=== PATIENT | male | born 1965 | race African-American/Black ===

== ENCOUNTER 2017-03-28 16:45 | Inpatient (IN) | payer SELFPAY ==
[2017-03-28] MEDS ORDERED: NACL 0.9% 1000 ML 1,000 ML IV ONE (16:54)
[2017-03-28] MEDS ORDERED: HEPARIN IV ONE (16:54)
[2017-03-28] MEDS ORDERED: ZOFRAN IV ONE (16:56)
[2017-03-28] MEDS ORDERED: MORPHINE IV ONE (16:56)
[2017-03-28] MEDS ORDERED: TRIDIL DRIP 50MG/250ML 50 MG/250 ML BOTTLE IV SCH (17:00)
[2017-03-28 17:01] LABS: Hematocrit 44.6 % (35.5-45.6); Hemoglobin 15.3 gm/dl (11.8-15.2); Mean Corpuscular HGB Conc 34 % (32-34); Mean Corpuscular Hemoglobin 29 pg (28-32); Mean Corpuscular Volume 84 fl (84-94); Platelet Count 273 K/mm3 (140-440); Red Blood Count 5.28 M/mm3 (3.65-5.03); Red Cell Distribution Width 13.6 % (13.2-15.2)
--- NOTE | 2017-03-28 17:01 | Emergency Department Report ---
ED Chest Pain HPI - General Chief Complaint: Chest Pain Stated Complaint: STEMI Time Seen by Provider: 03/28/17 16:52 Source: EMS Mode of arrival: Stretcher Limitations: Language Barrier - History of Present Illness Initial Comments: 51-year-old male with a past medical history hypertension and hyperlipidemia presents to the hospital complaints of chest pain. Patient unable to characterize pain patient with mod-severe and constant. Patient received aspirin and nitroglycerin 1 prior to her abdomen continues to have pain. Initial EKG shows anteroseptal ST elevation CT with reciprocal changes. microbiology laboratory manager activated prior to patient arrival and fire fighter informs and around to the hospital. Patient denies smoking history or previous CT. - Related Data Previous Rx's Medication Instructions Recorded Last Taken Type Aspirin EC [Aspirin Enteric Coated 81 mg PO QDAY #30 tablet 03/30/17 Unknown Rx TAB] AtorvaSTATin [Lipitor] 40 mg PO QHS #30 tablet 03/30/17 Unknown Rx Clopidogrel [Plavix] 75 mg PO QDAY #30 tablet 03/30/17 Unknown Rx ISOSORBIDE MONOnitrate [Imdur ER] 30 mg PO QDAY #30 tablet 03/30/17 Unknown Rx Lisinopril [Zestril TAB] 40 mg PO QDAY #30 tablet 03/30/17 Unknown Rx Metoprolol [Lopressor TAB] 50 mg PO BID #60 tablet 03/30/17 Unknown Rx Allergies Allergy/AdvReac Type Severity Reaction Status Date / Time No Known Allergies Allergy Verified 03/28/17 16:47 Heart Score - HEART Score History: Highly suspicious EKG: Significant ST-depression Age: 45-65 Risk factors: > 3 risk factors or hx of atherosclerotic disease Troponin: < normal limit HEART Score: 7 ED Review of Systems ROS: Stated complaint: STEMI Other details as noted in HPI Comment: All other systems reviewed and negative Other: Constitutional: No fevers chills Eyes: No eye pain visual changes ENT: No ear pain or throat pain Neck: Denies pain Respiratory: shortness of breath Cardiovascular: Denies palpitations, syncope GI: Denies abdominal pain, nausea, vomiting : Denies dysuria Musculoskeletal: Denies back pain Skin: Denies rash Neurologic: Denies headache ED Past Medical Hx - Past Medical History Previous Medical History?: Yes Hx Hypertension: Yes Additional medical history: high cholesterol - Social History Smoking Status: Never Smoker Substance Use Type: None - Medications Home Medications: Home Medications Medication Instructions Recorded Confirmed Last Taken Type Aspirin EC [Aspirin Enteric Coated 81 mg PO QDAY #30 tablet 03/30/17 Unknown Rx TAB] AtorvaSTATin [Lipitor] 40 mg PO QHS #30 tablet 03/30/17 Unknown Rx Clopidogrel [Plavix] 75 mg PO QDAY #30 tablet 03/30/17 Unknown Rx ISOSORBIDE MONOnitrate [Imdur ER] 30 mg PO QDAY #30 tablet 03/30/17 Unknown Rx Lisinopril [Zestril TAB] 40 mg PO QDAY #30 tablet 03/30/17 Unknown Rx Metoprolol [Lopressor TAB] 50 mg PO BID #60 tablet 03/30/17 Unknown Rx ED Physical Exam - General Limitations: Language Barrier ED Course Vital Signs 03/28/17 03/28/17 03/28/17 16:47 17:00 17:05 Temperature 96.9 F L Pulse Rate 86 86 82 Respiratory 24 24 23 Rate Blood Pressure 208/148 144/105 O2 Sat by Pulse 98 100 Oximetry 03/28/17 17:10 Temperature Pulse Rate Respiratory 23 Rate Blood Pressure O2 Sat by Pulse 99 Oximetry - Reevaluation(s) Reevaluation #1: 03/28/17 17:01 2 large-bore IV access sites obtained. Nitroglycerin drip initiated at the significantly elevated blood pressure with go systolic blood pressure 150s. Heparin bolus and drip initiated. Morphine/Zofran ordered for pain/nausea Patient received aspirin prior to arrival Radiology and Lab personnel and brought to the hospital - Consultations Consultation #1: 03/28/17 16:35 grass farm laborer activated and EKG sent and Reviewed by Dr Wood prior to pt arrival to the ED. + anteroseptal STEMI MIKEL score - Mikel Score Age > 65: (0) No Aspirin use within the Past 7 Days: (0) No 3 or more CAD Risk Factors: (1) Yes 2 or more Angina events in past 24 hrs: (0) No Known CAD with more than 50% Stenosis: (0) No Elevated Cardiac Markers: (0) No ST Deviation Greater than 0.5mm: (1) Yes MIKEL Score: 2 ED Medical Decision Making - Lab Data Result diagrams: 03/29/17 03:36 03/29/17 03:36 Lab Results 03/28/17 03/28/17 03/28/17 Range/Units 16:47 16:47 16:47 WBC 12.0 H (4.5-11.0) K/mm3 RBC 5.28 H (3.65-5.03) M/mm3 Hgb 15.3 H (11.8-15.2) gm/dl Hct 44.6 (35.5-45.6) % MCV 84 (84-94) fl MCH 29 (28-32) pg MCHC 34 (32-34) % RDW 13.6 (13.2-15.2) % Plt Count 273 (140-440) K/mm3 Lymph % (Auto) (13.4-35.0) % Iron % (Auto) (0.0-7.3) % Eos % (Auto) (0.0-4.3) % Baso % (Auto) (0.0-1.8) % Lymph # Paradichlorobenzene Machine Operator Iron # (0.0-0.8) K/mm3 Eos # (0.0-0.4) K/mm3 Baso # (0.0-0.1) K/mm3 Add Manual Diff Complete Total Counted 100 Seg Neutrophils % (40.0-70.0) % Seg Neuts % (Manual) 64.0 (40.0-70.0) % Band Neutrophils % 2.0 % Lymphocytes % (Manual) 25.0 (13.4-35.0) % Reactive Lymphs % (Man) 0 % Monocytes % (Manual) 7.0 (0.0-7.3) % Eosinophils % (Manual) 2.0 (0.0-4.3) % Basophils % (Manual) 0 (0.0-1.8) % Metamyelocytes % 0 % Myelocytes % 0 % Promyelocytes % 0 % Blast Cells % 0 % Nucleated RBC % Not Reportable Seg Neutrophils # (1.8-7.7) K/mm3 Seg Neutrophils # Man 7.7 (1.8-7.7) K/mm3 Band Neutrophils # 0.2 K/mm3 Lymphocytes # (Manual) 3.0 (1.2-5.4) K/mm3 Abs React Lymphs (Man) 0.0 K/mm3 Monocytes # (Manual) 0.8 (0.0-0.8) K/mm3 Eosinophils # (Manual) 0.2 (0.0-0.4) K/mm3 Basophils # (Manual) 0.0 (0.0-0.1) K/mm3 Metamyelocytes # 0.0 K/mm3 Myelocytes # 0.0 K/mm3 Promyelocytes # 0.0 K/mm3 Blast Cells # 0.0 K/mm3 WBC Morphology Not Reportable Hypersegmented Neuts Not Reportable Hyposegmented Neuts Not Reportable Hypogranular Neuts Not Reportable Smudge Cells Not Reportable Toxic Granulation Not Reportable Toxic Vacuolation Not Reportable Dohle Bodies Not Reportable Pelger-Huet Anomaly Not Reportable Mesha Rods Not Reportable Platelet Estimate Appears normal Clumped Platelets Not Reportable Plt Clumps, EDTA Not Reportable Large Platelets Not Reportable Giant Platelets Not Reportable Platelet Satelliting Not Reportable Plt Morphology Comment Not Reportable RBC Morphology Not Reportable Dimorphic RBCs Not Reportable Polychromasia Not Reportable Hypochromasia Not Reportable Poikilocytosis Not Reportable Anisocytosis Not Reportable Microcytosis Not Reportable Macrocytosis Not Reportable Spherocytes Not Reportable Pappenheimer Bodies Not Reportable Sickle Cells Not Reportable Target Cells Not Reportable Tear Drop Cells Not Reportable Ovalocytes Few Helmet Cells Not Reportable [place] Bodies Not Reportable Jenison Rings Not Reportable Leilani Cells Not Reportable Bite Cells Not Reportable Crenated Cell Not Reportable Elliptocytes Not Reportable Acanthocytes (Spur) Not Reportable Rouleaux Not Reportable Hemoglobin C Crystals Not Reportable Schistocytes Not Reportable Malaria parasites Not Reportable Carlos Bodies Not Reportable Hem Pathologist Commnt No PT 11.8 L (12.2-14.9) Sec. INR 0.83 L (0.87-1.13) APTT 25.6 (24.2-36.6) Sec. Activated Clotting Time (74-137) Sodium 140 (137-145) mmol/L Potassium 3.4 L (3.6-5.0) mmol/L Chloride 98.3 (98-107) mmol/L Carbon Dioxide 24 (22-30) mmol/L Anion Gap 21 mmol/L BUN 17 (9-20) mg/dL Creatinine 1.1 (0.8-1.5) mg/dL Estimated GFR > 60 ml/min BUN/Creatinine Ratio 15 % Glucose 119 H (75-100) mg/dL Calcium 9.5 (8.4-10.2) mg/dL Total Creatine Kinase 418 H (55-170) units/L CK-MB (CK-2) 6.3 H (0.0-4.0) ng/mL CK-MB (CK-2) Rel Index 1.5 (0-4) Troponin T < 0.010 (0.00-0.029) ng/mL Triglycerides (2-149) mg/dL Cholesterol (50-199) mg/dL LDL Cholesterol Direct (50-130) mg/dL HDL Cholesterol (40-59) mg/dL Cholesterol/HDL Ratio % Blood Type Antibody Screen 03/28/17 03/28/17 03/28/17 Range/Units 16:47 16:47 20:23 WBC (4.5-11.0) K/mm3 RBC (3.65-5.03) M/mm3 Hgb (11.8-15.2) gm/dl Hct (35.5-45.6) % MCV (84-94) fl MCH (28-32) pg MCHC (32-34) % RDW (13.2-15.2) % Plt Count (140-440) K/mm3 Lymph % (Auto) (13.4-35.0) % Iron % (Auto) (0.0-7.3) % Eos % (Auto) (0.0-4.3) % Baso % (Auto) (0.0-1.8) % Lymph # Iron # (0.0-0.8) K/mm3 Eos # (0.0-0.4) K/mm3 Baso # (0.0-0.1) K/mm3 Add Manual Diff Total Counted Seg Neutrophils % (40.0-70.0) % Seg Neuts % (Manual) (40.0-70.0) % Band Neutrophils % % Lymphocytes % (Manual) (13.4-35.0) % Reactive Lymphs % (Man) % Monocytes % (Manual) (0.0-7.3) % Eosinophils % (Manual) (0.0-4.3) % Basophils % (Manual) (0.0-1.8) % Metamyelocytes % % Myelocytes % % Promyelocytes % % Blast Cells % % Nucleated RBC % Seg Neutrophils # (1.8-7.7) K/mm3 Seg Neutrophils # Man (1.8-7.7) K/mm3 Band Neutrophils # K/mm3 Lymphocytes # (Manual) (1.2-5.4) K/mm3 Abs React Lymphs (Man) K/mm3 Monocytes # (Manual) (0.0-0.8) K/mm3 Eosinophils # (Manual) (0.0-0.4) K/mm3 Basophils # (Manual) (0.0-0.1) K/mm3 Metamyelocytes # K/mm3 Myelocytes # K/mm3 Promyelocytes # K/mm3 Blast Cells # K/mm3 WBC Morphology Hypersegmented Neuts Hyposegmented Neuts Hypogranular Neuts Smudge Cells Toxic Granulation Toxic Vacuolation Dohle Bodies Pelger-Huet Anomaly Mesha Rods Platelet Estimate Clumped Platelets Plt Clumps, EDTA Large Platelets Giant Platelets Platelet Satelliting Plt Morphology Comment RBC Morphology Dimorphic RBCs Polychromasia Hypochromasia Poikilocytosis Anisocytosis Microcytosis Macrocytosis Spherocytes Pappenheimer Bodies Sickle Cells Target Cells Tear Drop Cells Ovalocytes Helmet Cells [place] Bodies Jen[place] Rings Leilani Cells Bite Cells Crenated Cell Elliptocytes Acanthocytes (Spur) Rouleaux Hemoglobin C Crystals Schistocytes Malaria parasites Carlos Bodies Hem Pathologist Commnt PT (12.2-14.9) Sec. INR (0.87-1.13) APTT (24.2-36.6) Sec. Activated Clotting Time (74-137) Sodium (137-145) mmol/L Potassium (3.6-5.0) mmol/L Chloride (98-107) mmol/L Carbon Dioxide (22-30) mmol/L Anion Gap mmol/L BUN (9-20) mg/dL Creatinine (0.8-1.5) mg/dL Estimated GFR ml/min BUN/Creatinine Ratio % Glucose (75-100) mg/dL Calcium (8.4-10.2) mg/dL Total Creatine Kinase 1958 H (55-170) units/L CK-MB (CK-2) 209.6 H (0.0-4.0) ng/mL CK-MB (CK-2) Rel Index 10.7 H (0-4) Troponin T 6.360 H* D (0.00-0.029) ng/mL Triglycerides 1193 H (2-149) mg/dL Cholesterol 354 H (50-199) mg/dL LDL Cholesterol Direct 120 (50-130) mg/dL HDL Cholesterol 50 (40-59) mg/dL Cholesterol/HDL Ratio 7.08 % Blood Type B POSITIVE Antibody Screen Negative 03/28/17 03/28/17 03/28/17 Range/Units 21:14 22:25 22:39 WBC (4.5-11.0) K/mm3 RBC (3.65-5.03) M/mm3 Hgb (11.8-15.2) gm/dl Hct (35.5-45.6) % MCV (84-94) fl MCH (28-32) pg MCHC (32-34) % RDW (13.2-15.2) % Plt Count (140-440) K/mm3 Lymph % (Auto) (13.4-35.0) % Iron % (Auto) (0.0-7.3) % Eos % (Auto) (0.0-4.3) % Baso % (Auto) (0.0-1.8) % Lymph # Iron # (0.0-0.8) K/mm3 Eos # (0.0-0.4) K/mm3 Baso # (0.0-0.1) K/mm3 Add Manual Diff Total Counted Seg Neutrophils % (40.0-70.0) % Seg Neuts % (Manual) (40.0-70.0) % Band Neutrophils % % Lymphocytes % (Manual) (13.4-35.0) % Reactive Lymphs % (Man) % Monocytes % (Manual) (0.0-7.3) % Eosinophils % (Manual) (0.0-4.3) % Basophils % (Manual) (0.0-1.8) % Metamyelocytes % % Myelocytes % % Promyelocytes % % Blast Cells % % Nucleated RBC % Seg Neutrophils # (1.8-7.7) K/mm3 Seg Neutrophils # Man (1.8-7.7) K/mm3 Band Neutrophils # K/mm3 Lymphocytes # (Manual) (1.2-5.4) K/mm3 Abs React Lymphs (Man) K/mm3 Monocytes # (Manual) (0.0-0.8) K/mm3 Eosinophils # (Manual) (0.0-0.4) K/mm3 Basophils # (Manual) (0.0-0.1) K/mm3 Metamyelocytes # K/mm3 Myelocytes # K/mm3 Promyelocytes # K/mm3 Blast Cells # K/mm3 WBC Morphology Hypersegmented Neuts Hyposegmented Neuts Hypogranular Neuts Smudge Cells Toxic Granulation Toxic Vacuolation Dohle Bodies Pelger-Huet Anomaly Mesha Rods Platelet Estimate Clumped Platelets Plt Clumps, EDTA Large Platelets Giant Platelets Platelet Satelliting Plt Morphology Comment RBC Morphology Dimorphic RBCs Polychromasia Hypochromasia Poikilocytosis Anisocytosis Microcytosis Macrocytosis Spherocytes Pappenheimer Bodies Sickle Cells Target Cells Tear Drop Cells Ovalocytes Helmet Cells [place] Bodies Jen[place] Rings Leilani Cells Bite Cells Crenated Cell Elliptocytes Acanthocytes (Spur) Rouleaux Hemoglobin C Crystals Schistocytes Malaria parasites Carlos Bodies Hem Pathologist Commnt PT (12.2-14.9) Sec. INR (0.87-1.13) APTT (24.2-36.6) Sec. Activated Clotting Time 175 H 142 H (74-137) Sodium (137-145) mmol/L Potassium (3.6-5.0) mmol/L Chloride (98-107) mmol/L Carbon Dioxide (22-30) mmol/L Anion Gap mmol/L BUN (9-20) mg/dL Creatinine (0.8-1.5) mg/dL Estimated GFR ml/min BUN/Creatinine Ratio % Glucose (75-100) mg/dL Calcium (8.4-10.2) mg/dL Total Creatine Kinase 2469 H (55-170) units/L CK-MB (CK-2) 264.1 H (0.0-4.0) ng/mL CK-MB (CK-2) Rel Index 10.6 H (0-4) Troponin T 6.970 H* (0.00-0.029) ng/mL Triglycerides (2-149) mg/dL Cholesterol (50-199) mg/dL LDL Cholesterol Direct (50-130) mg/dL HDL Cholesterol (40-59) mg/dL Cholesterol/HDL Ratio % Blood Type Antibody Screen 12/11/17 12/11/17 Range/Units 03:36 03:36 WBC 13.6 H (4.5-11.0) K/mm3 RBC 4.55 (3.65-5.03) M/mm3 Hgb 12.9 (11.8-15.2) gm/dl Hct 38.8 (35.5-45.6) % MCV 85 (84-94) fl MCH 29 (28-32) pg MCHC 33 (32-34) % RDW 13.5 (13.2-15.2) % Plt Count 234 (140-440) K/mm3 Lymph % (Auto) 14.0 (13.4-35.0) % Iron % (Auto) 5.8 (0.0-7.3) % Eos % (Auto) 0.1 (0.0-4.3) % Baso % (Auto) 0.5 (0.0-1.8) % Lymph # 1.9 Iron # 0.8 (0.0-0.8) K/mm3 Eos # 0.0 (0.0-0.4) K/mm3 Baso # 0.1 (0.0-0.1) K/mm3 Add Manual Diff Total Counted Seg Neutrophils % 79.6 H (40.0-70.0) % Seg Neuts % (Manual) (40.0-70.0) % Band Neutrophils % % Lymphocytes % (Manual) (13.4-35.0) % Reactive Lymphs % (Man) % Monocytes % (Manual) (0.0-7.3) % Eosinophils % (Manual) (0.0-4.3) % Basophils % (Manual) (0.0-1.8) % Metamyelocytes % % Myelocytes % % Promyelocytes % % Blast Cells % % Nucleated RBC % Seg Neutrophils # 10.8 H (1.8-7.7) K/mm3 Seg Neutrophils # Man (1.8-7.7) K/mm3 Band Neutrophils # K/mm3 Lymphocytes # (Manual) (1.2-5.4) K/mm3 Abs React Lymphs (Man) K/mm3 Monocytes # (Manual) (0.0-0.8) K/mm3 Eosinophils # (Manual) (0.0-0.4) K/mm3 Basophils # (Manual) (0.0-0.1) K/mm3 Metamyelocytes # K/mm3 Myelocytes # K/mm3 Promyelocytes # K/mm3 Blast Cells # K/mm3 WBC Morphology Hypersegmented Neuts Hyposegmented Neuts Hypogranular Neuts Smudge Cells Toxic Granulation Toxic Vacuolation Dohle Bodies Pelger-Huet Anomaly Mesha Rods Platelet Estimate Clumped Platelets Plt Clumps, EDTA Large Platelets Giant Platelets Platelet Satelliting Plt Morphology Comment RBC Morphology Dimorphic RBCs Polychromasia Hypochromasia Poikilocytosis Anisocytosis Microcytosis Macrocytosis Spherocytes Pappenheimer Bodies Sickle Cells Target Cells Tear Drop Cells Ovalocytes Helmet Cells [place] Bodies Jenison Rings [place] Cells Bite Cells Crenated Cell Elliptocytes Acanthocytes (Spur) Rouleaux Hemoglobin C Crystals Schistocytes Malaria parasites Carlos Bodies Hem Pathologist Commnt PT (12.2-14.9) Sec. INR (0.87-1.13) APTT (24.2-36.6) Sec. Activated Clotting Time (74-137) Sodium 137 (137-145) mmol/L Potassium 3.7 (3.6-5.0) mmol/L Chloride 99.5 (98-107) mmol/L Carbon Dioxide 20 L (22-30) mmol/L Anion Gap 21 mmol/L BUN 14 (9-20) mg/dL Creatinine 0.8 (0.8-1.5) mg/dL Estimated GFR > 60 ml/min BUN/Creatinine Ratio 18 % Glucose 111 H (75-100) mg/dL Calcium 8.3 L (8.4-10.2) mg/dL Total Creatine Kinase 2468 H (55-170) units/L CK-MB (CK-2) 262.6 H (0.0-4.0) ng/mL CK-MB (CK-2) Rel Index 10.6 H (0-4) Troponin T 6.840 H* (0.00-0.029) ng/mL Triglycerides (2-149) mg/dL Cholesterol (50-199) mg/dL LDL Cholesterol Direct (50-130) mg/dL HDL Cholesterol (40-59) mg/dL Cholesterol/HDL Ratio % Blood Type Antibody Screen - EKG Data -: EKG Interpreted by Mn EKG shows normal: sinus rhythm, axis (qrs 1), QRS complexes (90), ST-T waves ( anteriorseptal STMI, with inv recipical changes.) Rate: normal - Radiology Data Radiology results: image reviewed Chest x-ray read by me: No acute finding - Medical Decision Making pt admitted and emergently transferred to grass farm laborer for ST elevation CT. Hospitalist informed - Differential Diagnosis dissection, CT, GERD, atypical chest pain, costochondrits Critical Care Time: Yes Critical care time in (mins) excluding proc time.: 35 Critical care attestation.: If time is entered above; I have spent that time in minutes in the direct care of this critically ill patient, excluding procedure time. ED Disposition Clinical Impression: Anteroseptal myocardial infarction, HTN (hypertension), HLD (hyperlipidemia), Hypertensive urgency STEMI (ST elevation myocardial infarction) Qualifiers: Involved coronary artery: other inferior wall coronary artery Qualified Code(s) : I21.19 - ST elevation (STEMI) myocardial infarction involving other coronary artery of inferior wall Disposition: DC-09 OP ADMIT IP TO THIS HOSP Is pt being admited?: Yes Condition: Stable Time of Disposition: 17:20 (transfered to grass farm laborer, Nina/britney and Hospitalist/ Gordy aware)
[2017-03-28] MEDS ORDERED: MORPHINE IV PRN (17:17)
[2017-03-28] MEDS ORDERED: MILK OF MAGNESIA PO PRN (17:17)
[2017-03-28] MEDS ORDERED: DULCOLAX PR PRN (17:17)
[2017-03-28] MEDS ORDERED: ALUM-MAG HYDROX-SIMETH 200-200-20MG/5ML PO PRN (17:17)
[2017-03-28] MEDS ORDERED: PROVENTIL IH PRN (17:17)
--- NOTE | 2017-03-28 17:17 | History and Physical Report ---
History of Present Illness Chief complaint: My chest hurt History of present illness: 51 YO Male with HTN, HLD presents to ED for evaluation. Pt states that he experienced an sudden onset of pain in his chest. Pain is 10/10, Substernal, nonradiating, constant, not worsened with exertior, or relieved with rest. EMS notified, and pt fount to have EKG findings consistent with STEMI. Pt transported to [facility] for evaluation. Pt treated with aspirin, and nitro en route. Pt seen and evaluated in ED upon arrival, and found to be in distress. EKG revealed evidence STEMI. Cardiology team consulted, and patient taken urgently to flower shop laborer/designer for intervention. No reports of fever, chills, palpitations, productive cough, BRBPR, unintentional weight loss, night sweats, leg swelling, calf pain, prolonged travel/immobility, or recent ill contacts. Pt admitted to ICU. Past History Past Medical History: hypertension, hyperlipidemia Past Surgical History: No surgical history, Other (reviewed) Social history: single. denies: smoking, alcohol abuse, prescription drug abuse Family history: no significant family history Medications and Allergies Allergies Allergy/AdvReac Type Severity Reaction Status Date / Time No Known Allergies Allergy Verified 03/28/17 16:47 Active Meds: Active Medications Heparin Sodium (Porcine) (Heparin 10,000 Units/10 Ml) 4,000 unit IV ONCE ONE Stop: 03/28/17 18:01 Nitroglycerin/Dextrose (Tridil Drip 50mg/250ml) 50 mg in 250 mls @ 3 mls/hr IV TITR KATE; 10 MCG/MIN PRN Reason: Protocol Last Titration: 03/28/17 17:08 Dose: 20 mcg/min, 6 mls/hr Heparin Sodium/Sodium Chloride (Heparin/ 0.45% Nacl-25,000 Unit/500 Ml) 25,000 unit in 500 mls @ 16 mls/hr IV TITRATE KATE; 800 UNITS/HR PRN Reason: Protocol Sodium Chloride (Nacl 0.9% 1000 Ml) 1,000 mls @ 42 mls/hr IV ONCE ONE Stop: 03/29/17 16:42 Last Admin: 03/28/17 17:11 Dose: 42 mls/hr Review of Systems Constitutional: no weight loss, no weight gain, no fever, no chills Ears, nose, mouth and throat: no ear pain, no ear discharge, no tinnitis, no decreased hearing, no nose pain, no nasal congestion Cardiovascular: chest pain, no orthopnea, no palpitations, no rapid/irregular heart beat, no edema, no syncope, no lightheadedness Respiratory: no cough, no cough with sputum, no excessive sputum, no hemoptysis , no shortness of breath Gastrointestinal: no abdominal pain, no nausea, no vomiting, no diarrhea, no constipation Genitourinary Male: no hematuria, no flank pain, no discharge, no urinary frequency Rectal: no pain, no incontinence, no bleeding Musculoskeletal: no neck stiffness, no neck pain, no shooting arm pain, no arm numbness/tingling, no low back pain Integumentary: no rash, no pruritis, no redness, no sores, no wounds Neurological: no transient paralysis, no paralysis, no weakness, no parathesias , no numbness Psychiatric: no anxiety, no memory loss, no change in sleep habits, no sleep disturbances, no insomnia, no hypersomnia Endocrine: no cold intolerance, no heat intolerance, no polyphagia, no excessive thirst, no polydipsia, no polyuria Hematologic/Lymphatic: no easy bruising, no easy bleeding Allergic/Immunologic: no urticaria, no allergic rhinitis, no wheezing Exam - Constitutional Vitals: Temp Pulse Resp BP Pulse Ox 96.9 F L 82 23 144/105 99 03/28/17 16:47 03/28/17 17:05 03/28/17 17:10 03/28/17 17:05 03/28/17 17:10 General appearance: Present: severe distress - EENT Eyes: Present: PERRL ENT: hearing intact, clear oral mucosa - Neck Neck: Present: supple, normal ROM - Respiratory Respiratory effort: normal Respiratory: bilateral: diminished - Cardiovascular Heart Sounds: Present: S1 & S2. Absent: rub, click - Extremities Extremities: pulses symmetrical, No edema Peripheral Pulses: within normal limits - Abdominal General gastrointestinal: Present: soft, non-tender, non-distended, normal bowel sounds Male genitourinary: Present: normal - Integumentary Integumentary: Present: clear, warm, dry, pale - Musculoskeletal Musculoskeletal: generalized weakness - Psychiatric Psychiatric: appropriate mood/affect, intact judgment & insight, agitated - Neurologic Neurologic: CNII-XII intact, moves all extremities Results - Labs CBC & Chem 7: 03/28/17 16:47 Labs: Abnormal lab results 03/28/17 Range/Units 16:47 WBC 12.0 H (4.5-11.0) K/mm3 RBC 5.28 H (3.65-5.03) M/mm3 Hgb 15.3 H (11.8-15.2) gm/dl Assessment and Plan - Patient Problems (1) STEMI (ST elevation myocardial infarction) Status: Acute Qualifiers: Involved coronary artery: other inferior wall coronary artery Qualified Code(s): I21.19 - ST elevation (STEMI) myocardial infarction involving other coronary artery of inferior wall Plan to address problem: Pt admitted to ICU, Cardiology consulted, patient taken urgently to flower shop laborer/designer, antiplatelet therpay, lipid panel, The high probability of a clinically significant, sudden or life threatening deterioration of the [Cardiac, respiratory, neuro] system(s) required my full and direct attention, intervention and personal management. The aggregate critical care time was [65] minutes. This time is in addition to time spent performing reported procedures but includes the following: [x] Data Review and interpretation [x] Patient assessment and monitoring of vital signs [x] Documentation [x] Medication orders and management (2) HLD (hyperlipidemia) Status: Acute Plan to address problem: Lipid panel, statin therapy, low cholesterol diet. (3) Hypertensive urgency Status: Acute Plan to address problem: Monitor bp q shift, IV hydralazine prn, continue medical management. (4) DVT prophylaxis Status: Acute
[2017-03-28] MEDS ORDERED: VERSED ONE (17:18)
[2017-03-28] MEDS ORDERED: XYLOCAINE 2% INFILTRATI ONE (17:18)
[2017-03-28] MEDS ORDERED: HEPARIN/NS 5000 UNIT/500ML(CATH LAB) 1,000 ML IR ONE (17:18)
--- NOTE | 2017-03-28 17:19 | XRay Report ---
FINAL REPORT EXAM: XR CHEST 1V AP HISTORY: cp, mi TECHNIQUE: upright single view chest PRIORS: None. FINDINGS: Cardiac and mediastinal contours are unremarkable. No focal pulmonary infiltrate is identified. No pleural fluid collection seen. Pulmonary vasculature is unremarkable. IMPRESSION: Negative single-view chest
[2017-03-28 17:29] LABS: Creatine Kinase MB 6.3 ng/mL (0.0-4.0)
[2017-03-28 17:30] LABS: Anion Gap 21 mmol/L; BUN/Creatinine Ratio 15; Blood Urea Nitrogen 17 mg/dL (9-20); Calcium 9.5 mg/dL (8.4-10.2); Carbon Dioxide 24 mmol/L (22-30); Chloride 98.3 mmol/L (98-107); Creatine Kinase 418 units/L (55-170); Glucose 119 mg/dL (75-100); Potassium 3.4 mmol/L (3.6-5.0); Sodium 140 mmol/L (137-145)
[2017-03-28 17:36] LABS: INR 0.83 (0.87-1.13)
[2017-03-28 17:41] LABS: Partial Thromboplastin Time 25.6 Sec. (24.2-36.6)
[2017-03-28] MEDS ORDERED: NITROGLYCERIN SYRINGE 6 ML ONE (17:41)
[2017-03-28] MEDS: SUBLIMAZE ONE ×2 (17:44→18:08)
[2017-03-28] MEDS: HEPARIN 10,000 UNITS/10 ML ONE ×2 (17:54→18:29)
[2017-03-28] MEDS ORDERED: HEPARIN 10,000 UNITS/10 ML IV ONE (18:00)
[2017-03-28] MEDS ORDERED: HEPARIN/ 0.45% NACL-25,000 UNIT/500 ML 25,000 UNIT/500 ML BAG IV SCH (18:00)
[2017-03-28] MEDS ORDERED: ATROPINE 0.1% (CARDIAC) ONE ×2 (18:04→22:46)
[2017-03-28] MEDS ORDERED: ADRENALIN ONE (18:04)
[2017-03-28] MEDS ORDERED: PLAVIX ONE (18:23)
[2017-03-28] MEDS ORDERED: ALUM-MAG HYDROX-SIMETH 200-200-20MG/5ML ONE (18:29)
--- NOTE | 2017-03-28 18:54 | Cardiac Catherization Report ---
CARDIAC CATHETERIZATION AND CORONARY ANGIOPLASTY REASON FOR PROCEDURE: The patient is a 51-year-old man with history of hypertension, who has no prior cardiac history. He presented to the Emergency Room with chest pain and EKG consistent with acute anterior wall ST elevation myocardial infarction. Emergency cardiac catheterization protocol was activated. PROCEDURES PERFORMED: 1. Left heart catheterization. 2. Selective left and right coronary angiography. 3. Coronary angioplasty and stenting of the mid left anterior descending artery. The patient was prepped and draped in a sterile fashion under emergency protocol. The right femoral artery was entered using Seldinger technique followed by placement of a 6-Malaysian sheath. Selective angiography of the right and left coronary arteries was performed. The angiograms were reviewed. The left main coronary artery was short, free of significant disease. The left anterior descending artery contained moderate to severe ectasia of its proximal to mid segment. Following this ectatic segment, the LAD was completely occluded. This was the infarct related lesion. The large mid obtuse marginal branch of the circumflex artery contained a 20-30% stenosis of its mid segment, otherwise the rest of the circumflex was free of significant disease. The right coronary artery was dominant. This vessel contained a 30% stenosis of its mid segment. CORONARY ANGIOPLASTY: Ad hoc, primary angioplasty of the mid LAD occlusion was performed. We selected a number 3.5 XB guiding catheter advanced to the left coronary ostium. A 0.014 inch All Star guidewire was introduced into the LAD, and we were successfully able to penetrate the completely occluded vessel. Following wire placement in distal vessel, a 3.5 x 15 mm balloon catheter was used to predilate the lesion. This restored HEBER 3 flow. There was a significant residual stenosis, prompting the deployment of a 3.0 x 15 mm bare metal stent, which was inflated to optimal pressures. Following stenting, there was an excellent angiographic result at the treated site, zero residual stenosis and HEBER 3 flow restored. A small diffusely diseased diagonal branch, which originated adjacent to the occluded segment, is recommended for medical therapy. No branch vessel intervention was performed. The procedure was well tolerated by the patient and there were no complications. He was returned to the postprocedure unit in stable condition. CONCLUSION: 1. Acute anterior wall ST elevation myocardial infarction. 2. Emergency cardiac catheterization. 3. Multivessel coronary disease. 4. 100% occluded mid LAD as the infarct-related lesion. 5. Successful primary angioplasty and stenting of the LAD, with deployment of a 3.0 mm bare metal stent. [facility]# [id number] GIANFRANCO/MARCO ANTONIO
[2017-03-28] MEDS ORDERED: NACL 0.9% 1000 ML 1,000 ML IV SCH (19:00)
[2017-03-28 19:16] LABS: Basophils % (Manual) 0 % (0.0-1.8); Blastocytes % (Manual) 0 %
[2017-03-28 19:17] LABS: Diff Status Complete; Ovalocytes Few
--- NOTE | 2017-03-28 19:32 | Consultation ---
History of Present Illness Consult date: 03/28/17 Consult reason: chest pain, other (acute [place]) History of present illness: 51y M with history of hypertension, presented with chest pain. ECG consistent with acute anterior wall STEMI. Emergency cardiac cath :100% mid LAD occlusion. Successful primary PCI, with excellent result, HEBER 3 flow restored, 3.0mm BM stent. No complications. Admit for post [place] supportive management. Past History Past Medical History: hypertension, hyperlipidemia Past Surgical History: No surgical history, Other (reviewed) Social history: single. denies: smoking, alcohol abuse, prescription drug abuse Family history: no significant family history Medications and Allergies Allergies Allergy/AdvReac Type Severity Reaction Status Date / Time No Known Allergies Allergy Verified 03/28/17 16:47 Active Meds: Active Medications Al Hydrox/Mg Hydrox/Simethicone (Alum-Mag Hydrox-Simeth 944-659-33ud/5ml) 30 ml PO Q4H PRN PRN Reason: Indigestion Albuterol (Proventil) 2.5 mg IH Q3HRT PRN PRN Reason: Shortness Of Breath Aspirin (Ecotrin) 325 mg PO QDAY KATE Atorvastatin Calcium (Lipitor) 40 mg PO QHS KATE Bisacodyl (Dulcolax) 10 mg NV QDAY PRN PRN Reason: constipation unrelieved by MOM Clopidogrel Bisulfate (Plavix) 75 mg PO QDAY KATE Nitroglycerin/Dextrose (Tridil Drip 50mg/250ml) 50 mg in 250 mls @ 3 mls/hr IV TITR KATE; 10 MCG/MIN PRN Reason: Protocol Last Titration: 03/28/17 17:08 Dose: 20 mcg/min, 6 mls/hr Sodium Chloride (Nacl 0.9% 1000 Ml) 1,000 mls @ 42 mls/hr IV ONCE ONE Stop: 03/29/17 16:42 Last Admin: 03/28/17 17:11 Dose: 42 mls/hr Sodium Chloride (Nacl 0.9% 1000 Ml) 1,000 mls @ 100 mls/hr IV DIRECT KATE Stop: 03/29/17 04:59 Lisinopril (Zestril) 20 mg PO QDAY KATE Magnesium Hydroxide (Milk Of Magnesia) 30 ml PO Q4H PRN PRN Reason: Constipation Metoprolol Tartrate (Lopressor) 50 mg PO BID KATE Morphine Sulfate (Morphine) 2 mg IV Q4H PRN PRN Reason: Pain, Moderate (4-6) Review of Systems Cardiovascular: chest pain, shortness of breath, no orthopnea, no palpitations, no rapid/irregular heart beat, no edema, no syncope, no lightheadedness Physical Examination Vital Signs Pulse 91 H 03/28/17 16:44 General appearance: mild distress HEENT: Positive: PERRL Neck: Positive: neck supple Cardiac: Positive: Reg Rate and Rhythm Lungs: Positive: Decreased Breath Sounds Neuro: Positive: Grossly Intact Abdomen: Positive: Soft Male genitourinary: Positive: deferred Skin: Positive: Clear Extremities: Absent: edema Results 03/28/17 16:47 03/28/17 16:47 Cardiac Enzymes 03/28/17 Range/Units 16:47 CK-MB (CK-2) 6.3 H (0.0-4.0) ng/mL Coagulation 03/28/17 Range/Units 16:47 PT 11.8 L (12.2-14.9) Sec. INR 0.83 L (0.87-1.13) APTT 25.6 (24.2-36.6) Sec. Lipids 03/28/17 Range/Units 16:47 Triglycerides 1193 H (2-149) mg/dL Cholesterol 354 H (50-199) mg/dL HDL Cholesterol 50 (40-59) mg/dL Cholesterol/HDL Ratio 7.08 % CBC 03/28/17 Range/Units 16:47 WBC 12.0 H (4.5-11.0) K/mm3 RBC 5.28 H (3.65-5.03) M/mm3 Hgb 15.3 H (11.8-15.2) gm/dl Hct 44.6 (35.5-45.6) % Plt Count 273 (140-440) K/mm3 Lymph # [employer] Comprehensive Metabolic Panel 03/28/17 Range/Units 16:47 Sodium 140 (137-145) mmol/L Potassium 3.4 L (3.6-5.0) mmol/L Chloride 98.3 (98-107) mmol/L Carbon Dioxide 24 (22-30) mmol/L BUN 17 (9-20) mg/dL Creatinine 1.1 (0.8-1.5) mg/dL Glucose 119 H (75-100) mg/dL Calcium 9.5 (8.4-10.2) mg/dL EKG interpretations - Telemetry EKG Rhythm: Sinus Rhythm (anterior STEMI) Assessment and Plan - Patient Problems (1) STEMI (ST elevation myocardial infarction) Current Visit: Yes Status: Acute Qualifiers: Involved coronary artery: other inferior wall coronary artery Qualified Code(s): I21.19 - ST elevation (STEMI) myocardial infarction involving other coronary artery of inferior wall Plan to address problem: Presented with chest pain. ECG consistent with acute anterior wall STEMI. Emergency cardiac cath :100% mid LAD occlusion. Successful primary PCI, with excellent result, HEBER 3 flow restored, 3.0mm BM stent. (2) Hypertensive urgency Current Visit: Yes Status: Acute Plan to address problem: Aggressive management of hypertension.
[2017-03-28 21:09] LABS: Creatine Kinase MB 209.6 ng/mL (0.0-4.0)
[2017-03-28] MEDS: LOPRESSOR PO SCH (21:37)
[2017-03-28] MEDS: ZESTRIL PO SCH (21:37)
[2017-03-28] MEDS ORDERED: APRESOLINE IV ONE (22:59)
[2017-03-28 23:28] LABS: Creatine Kinase MB 264.1 ng/mL (0.0-4.0)
--- NOTE | 2017-03-29 03:11 | XRay Report ---
FINAL REPORT EXAM: XR CHEST 1V AP HISTORY: post pci COMPARISON: March 28, 2017. FINDINGS: Frontal view(s) of the chest obtained. Cardiac silhouette within normal limits. No gross consolidation or effusion. No pneumothorax. IMPRESSION: No grossly acute findings.
[2017-03-29 04:48] LABS: Basophils % (Auto) 0.5 % (0.0-1.8); Eosinophils % (Auto) 0.1 % (0.0-4.3); Hematocrit 38.8 % (35.5-45.6); Hemoglobin 12.9 gm/dl (11.8-15.2); Mean Corpuscular HGB Conc 33 % (32-34); Mean Corpuscular Hemoglobin 29 pg (28-32); Mean Corpuscular Volume 85 fl (84-94); Platelet Count 234 K/mm3 (140-440); Red Blood Count 4.55 M/mm3 (3.65-5.03); Red Cell Distribution Width 13.5 % (13.2-15.2); White Blood Count 13.6 K/mm3 (4.5-11.0)
[2017-03-29 05:14] LABS: Creatine Kinase MB 262.6 ng/mL (0.0-4.0)
[2017-03-29 05:16] LABS: BUN/Creatinine Ratio 18; Blood Urea Nitrogen 14 mg/dL (9-20); Calcium 8.3 mg/dL (8.4-10.2); Carbon Dioxide 20 mmol/L (22-30); Chloride 99.5 mmol/L (98-107); Glucose 111 mg/dL (75-100); Sodium 137 mmol/L (137-145)
[2017-03-29 05:31] LABS: Creatine Kinase 2468 units/L (55-170)
[2017-03-29 05:34] LABS: Anion Gap 21 mmol/L; Potassium 3.7 mmol/L (3.6-5.0)
[2017-03-29] MEDS: PLAVIX PO SCH (10:18)
[2017-03-29] MEDS: LOPRESSOR PO SCH ×3 (10:19→22:55)
[2017-03-29] MEDS: ZESTRIL PO SCH (10:19)
[2017-03-29] MEDS: ECOTRIN PO SCH (10:19)
--- NOTE | 2017-03-29 11:58 | Consultation ---
History of Present Illness Consult date: 03/29/17 Reason for consult: other (STEMI) History of present illness: Called to evaluate 51y male with history of hypertension, presented with chest pain.ECG consistent with acute anterior wall STEMI. Emergency cardiac cath done revealing 100% mid LAD occlusion. Dr. Wood evaluated the patient and successful primary PCI, with excellent result, HEBER 3 flow restored, 3.0mm BM stent. No complications. Admit for post [place] supportive management. Called to ICU monitoring. Denies any recent history of smoking or prior pulmonary disease. Currently no chest pain reported. No coughing Past History Past Medical History: hypertension, hyperlipidemia Past Surgical History: No surgical history, Other (reviewed) Social history: single. denies: smoking, alcohol abuse, prescription drug abuse Family history: no significant family history Medications and Allergies Allergies Allergy/AdvReac Type Severity Reaction Status Date / Time No Known Allergies Allergy Verified 03/28/17 16:47 Active Meds: Active Medications Al Hydrox/Mg Hydrox/Simethicone (Alum-Mag Hydrox-Simeth [id number]/5ml) 30 ml PO Q4H PRN PRN Reason: Indigestion Last Admin: 03/29/17 10:20 Dose: 30 ml Albuterol (Proventil) 2.5 mg IH Q3HRT PRN PRN Reason: Shortness Of Breath Aspirin (Ecotrin) 325 mg PO QDAY [facility] Last Admin: 03/29/17 10:19 Dose: 325 mg Atorvastatin Calcium (Lipitor) 40 mg PO QHS [facility] Last Admin: 03/28/17 21:37 Dose: 40 mg Bisacodyl (Dulcolax) 10 mg MO QDAY PRN PRN Reason: constipation unrelieved by MOM Clopidogrel Bisulfate (Plavix) 75 mg PO QDAY [facility] Last Admin: 03/29/17 10:18 Dose: 75 mg Nitroglycerin/Dextrose (Tridil Drip 50mg/250ml) 50 mg in 250 mls @ 3 mls/hr IV TITR KATE; 10 MCG/MIN PRN Reason: Protocol Last Titration: 03/29/17 07:20 Dose: 5 mcg/min, 1.5 mls/hr Sodium Chloride (Nacl 0.9% 1000 Ml) 1,000 mls @ 42 mls/hr IV ONCE ONE Stop: 03/29/17 16:42 Last Admin: 03/28/17 17:11 Dose: 42 mls/hr Influenza Virus Vaccine Quadrival (Fluarix Quad [id number](36 Mos+) 0.5 ml IM .ONCE ONE Stop: 03/29/17 12:01 Lisinopril (Zestril) 20 mg PO QDAY [facility] Last Admin: 03/29/17 10:19 Dose: 20 mg Magnesium Hydroxide (Milk Of Magnesia) 30 ml PO Q4H PRN PRN Reason: Constipation Metoprolol Tartrate (Lopressor) 50 mg PO BID [facility] Last Admin: 03/29/17 10:19 Dose: 50 mg Morphine Sulfate (Morphine) 2 mg IV Q4H PRN PRN Reason: Pain, Moderate (4-6) Last Admin: 03/28/17 21:40 Dose: 2 mg Pneumococcal Polyvalent Vaccine (Pneumovax 23) 0.5 ml IM .ONCE ONE Stop: 03/29/17 12:01 Review of Systems Constitutional: fatigue, weakness, no weight loss, no weight gain, no fever, no chills, no sweats, no malaise, no lethargy Ears, nose, mouth and throat: deferred Cardiovascular: chest pain Respiratory: no cough, no cough with sputum, no excessive sputum, no hemoptysis , no shortness of breath Gastrointestinal: no abdominal pain, no nausea, no vomiting, no diarrhea, no constipation Genitourinary Male: no dysuria, no hematuria, no flank pain, no discharge Rectal: no pain Musculoskeletal: no neck stiffness, no neck pain, no shooting arm pain, no arm numbness/tingling, no low back pain Integumentary: no deferred, no rash, no pruritis Neurological: no head injury, no transient paralysis, no paralysis, no weakness Psychiatric: no anxiety Endocrine: no cold intolerance Hematologic/Lymphatic: no easy bruising, no easy bleeding, no lymphadenopathy Physical Examination Vital signs: Vital Signs Pulse 91 H 03/28/17 16:44 General appearance: no acute distress, alert Eyes: non-icteric ENT: oropharynx moist Neck: supple, no JVD Ascultation: Bilateral: rales (both bases) Cardiovascular: regular rate and rhythm Gastrointestinal: normoactive bowel sounds, non-distended Integumentary: normal Extremities: no cyanosis, no edema, other (no bleeding at cath Site) normal mental status, non-focal exam, CN II-XII normal, motor strength normal and mood appropriate, affect normal Results - Laboratory Findings CBC and BMP: 03/29/17 03:36 03/29/17 03:36 PT/INR, D-dimer PT 11.8 Sec. (12.2-14.9) L 03/28/17 16:47 INR 0.83 (0.87-1.13) L 03/28/17 16:47 Abnormal lab findings: Abnormal Labs 03/28/17 03/28/17 03/28/17 16:47 16:47 16:47 WBC 12.0 H RBC 5.28 H Hgb 15.3 H Seg Neutrophils % Seg Neutrophils # PT 11.8 L INR 0.83 L Activated Clotting Time Potassium 3.4 L Carbon Dioxide Glucose 119 H Calcium Total Creatine Kinase 418 H CK-MB (CK-2) 6.3 H CK-MB (CK-2) Rel Index Troponin T Triglycerides Cholesterol 03/28/17 03/28/17 03/28/17 16:47 20:23 21:14 WBC RBC Hgb Seg Neutrophils % Seg Neutrophils # PT INR Activated Clotting Time 175 H Potassium Carbon Dioxide Glucose Calcium Total Creatine Kinase 1958 H CK-MB (CK-2) 209.6 H CK-MB (CK-2) Rel Index 10.7 H Troponin T 6.360 H* D Triglycerides 1193 H Cholesterol 354 H 03/28/17 03/28/17 03/29/17 22:25 22:39 03:36 WBC 13.6 H RBC Hgb Seg Neutrophils % 79.6 H Seg Neutrophils # 10.8 H PT INR Activated Clotting Time 142 H Potassium Carbon Dioxide Glucose Calcium Total Creatine Kinase 2469 H CK-MB (CK-2) 264.1 H CK-MB (CK-2) Rel Index 10.6 H Troponin T 6.970 H* Triglycerides Cholesterol 03/29/17 03:36 WBC RBC Hgb Seg Neutrophils % Seg Neutrophils # PT INR Activated Clotting Time Potassium Carbon Dioxide 20 L Glucose 111 H Calcium 8.3 L Total Creatine Kinase 2468 H CK-MB (CK-2) 262.6 H CK-MB (CK-2) Rel Index 10.6 H Troponin T 6.840 H* Triglycerides Cholesterol - Diagnostic Findings Chest x-ray: report reviewed, image reviewed Assessment and Plan STEMI. Heart Successful angioplasty to the LAD. See cardiology report. Crackles. Need to be from monitor for congestive heart failure CAD Hypertension Hyperlipidemia Recommendations Continue monitor for chest pain. Wean off NTG if okay with cardiology. Monitor intake and output No active pulmonary disease seen on chest x-ray review. Due to prophylaxis Findings discussed with patient detail. We'll continue to monitor patient well at the ICU and then, will to sign off once the patient had been transferred out. Critical care time was 35 minutes [id number] evaluation and coordination of care.
[2017-03-29] MEDS ORDERED: PNEUMOVAX 23 IM ONE (12:00)
[2017-03-29] MEDS ORDERED: Fluarix Quad 2017-2018(36 MOS+ IM ONE (12:00)
--- NOTE | 2017-03-29 12:00 | Progress Note ---
Assessment and Plan Acute anterior wall STEMI. s/p PCI of mid LAD with BM stent. Hypertension Continue medical therapy for coronary artery disease including plavix and aspirin. Optimal BP management. Stable for transfer to telemetry. Subjective Date of service: 03/29/17 Interval history: Patient speaks little Bengali. He denies chest pain. Reports he feels better today. Objective Vital Signs Temp Pulse Pulse Resp Resp BP Pulse Ox 03/29/17 11:00 66 13 136/89 97 03/29/17 10:30 65 14 142/100 98 03/29/17 10:19 66 142/99 03/29/17 10:00 68 17 14 142/99 98 03/29/17 09:50 76 18 147/99 100 03/29/17 09:40 63 19 147/99 99 03/29/17 09:30 58 L 18 147/102 100 03/29/17 09:20 56 L 21 147/99 100 03/29/17 09:10 61 23 147/99 100 03/29/17 09:00 63 18 147/99 99 03/29/17 08:50 58 L 19 139/102 100 03/29/17 08:40 62 17 139/102 99 03/29/17 08:30 67 12 139/102 97 03/29/17 08:20 60 15 142/98 99 03/29/17 08:19 100 03/29/17 08:10 58 L 15 142/98 100 03/29/17 08:00 98.3 F 57 L 16 142/98 100 03/29/17 07:50 60 16 139/99 99 03/29/17 07:40 59 L 16 139/99 99 03/29/17 07:30 61 19 139/99 98 03/29/17 07:20 63 19 136/95 99 03/29/17 07:10 63 20 136/95 99 03/29/17 07:00 63 20 136/95 98 03/29/17 06:50 61 16 133/97 99 03/29/17 06:40 63 17 133/97 99 03/29/17 06:30 61 17 133/97 99 03/29/17 06:20 67 17 127/92 99 03/29/17 06:10 62 15 127/92 99 03/29/17 06:00 64 21 127/92 98 03/29/17 05:50 63 14 135/97 99 03/29/17 05:40 62 20 135/97 99 03/29/17 05:30 64 18 135/97 99 03/29/17 05:20 70 21 114/78 100 03/29/17 05:10 65 18 114/78 99 03/29/17 05:00 68 16 114/78 100 03/29/17 04:50 67 16 111/78 99 03/29/17 04:40 69 14 111/78 98 03/29/17 04:30 70 15 111/78 97 03/29/17 04:20 67 17 121/87 99 03/29/17 04:10 67 17 121/87 100 03/29/17 04:00 70 18 121/87 98 03/29/17 03:50 71 19 115/82 100 03/29/17 03:46 98.4 F 03/29/17 03:40 72 21 115/82 100 03/29/17 03:30 70 17 115/82 98 03/29/17 03:20 70 16 119/74 99 03/29/17 03:10 73 21 119/74 99 03/29/17 03:00 77 20 119/74 98 03/29/17 02:50 79 18 116/76 99 03/29/17 02:40 78 16 116/76 98 03/29/17 02:30 77 15 116/76 98 03/29/17 02:20 84 18 117/78 98 03/29/17 02:10 86 15 117/78 98 03/29/17 02:00 81 16 117/78 98 03/29/17 01:50 85 14 121/81 98 03/29/17 01:40 89 19 121/81 98 03/29/17 01:30 86 19 121/81 99 03/29/17 01:20 93 H 21 127/83 98 03/29/17 01:10 81 14 127/83 98 03/29/17 01:00 83 18 127/83 03/29/17 00:50 88 16 118/73 99 03/29/17 00:40 93 H 18 118/73 98 03/29/17 00:30 91 H 17 118/73 98 03/29/17 00:20 96 H 20 120/81 99 03/29/17 00:10 94 H 18 120/81 99 03/29/17 00:00 105 H 20 120/81 98 03/28/17 23:58 100 H 19 129/86 99 03/28/17 23:50 102 H 17 129/86 99 03/28/17 23:40 107 H 18 130/87 99 03/28/17 23:38 148/110 03/28/17 23:34 98.8 F 03/28/17 23:30 90 20 124/83 99 03/28/17 23:20 98 H 22 134/94 03/28/17 23:10 98 H 21 129/95 99 03/28/17 23:00 78 17 150/103 98 03/28/17 22:50 80 19 156/107 99 03/28/17 22:40 83 18 143/105 99 03/28/17 22:30 81 15 143/105 98 03/28/17 22:20 79 14 148/109 99 03/28/17 22:10 88 16 151/108 99 03/28/17 22:00 81 19 151/108 98 03/28/17 21:50 73 18 149/102 99 03/28/17 21:40 79 20 149/105 99 03/28/17 21:37 77 149/105 03/28/17 21:30 73 18 149/105 96 03/28/17 21:20 75 21 156/109 99 03/28/17 21:10 73 17 162/112 99 03/28/17 21:00 82 12 162/112 97 03/28/17 20:50 87 17 168/120 99 03/28/17 20:40 74 19 150/106 100 03/28/17 20:30 81 19 150/106 99 03/28/17 20:20 80 21 163/114 99 03/28/17 20:10 91 H 13 148/100 100 03/28/17 20:00 98.4 F 82 16 148/100 99 03/28/17 19:50 89 20 149/105 100 03/28/17 19:40 84 21 157/101 99 03/28/17 19:34 100 03/28/17 19:30 91 H 17 165/99 100 03/28/17 19:28 85 22 159/101 100 03/28/17 19:20 87 20 157/101 100 03/28/17 19:10 91 H 21 171/126 100 03/28/17 19:00 111 H 18 161/116 03/28/17 18:50 92 H 20 100 03/28/17 17:10 80 19 156/111 96 03/28/17 17:05 82 23 144/105 100 03/28/17 17:00 86 24 98 03/28/17 16:55 101 H 38 H 228/158 100 03/28/17 16:50 85 33 H 208/148 03/28/17 16:47 96.9 F L 86 24 208/148 03/28/17 16:45 89 41 H 208/148 03/28/17 16:44 91 H - Physical Examination General: No Apparent Distress HEENT: Positive: PERRL Neck: Positive: neck supple Cardiac: Positive: Reg Rate and Rhythm Lungs: Positive: Decreased Breath Sounds Neuro: Positive: Grossly Intact Extremities: Absent: edema - Labs and Meds Cardiac Enzymes 03/28/17 03/28/17 03/28/17 Range/Units 16:47 20:23 22:39 CK-MB (CK-2) 6.3 H 209.6 H 264.1 H (0.0-4.0) ng/mL 03/29/17 Range/Units 03:36 CK-MB (CK-2) 262.6 H (0.0-4.0) ng/mL Coagulation 03/28/17 Range/Units 16:47 PT 11.8 L (12.2-14.9) Sec. INR 0.83 L (0.87-1.13) APTT 25.6 (24.2-36.6) Sec. Lipids 03/28/17 Range/Units 16:47 Triglycerides 1193 H (2-149) mg/dL Cholesterol 354 H (50-199) mg/dL HDL Cholesterol 50 (40-59) mg/dL Cholesterol/HDL Ratio 7.08 % CBC 03/28/17 03/29/17 Range/Units 16:47 03:36 WBC 12.0 H 13.6 H (4.5-11.0) K/mm3 RBC 5.28 H 4.55 (3.65-5.03) M/mm3 Hgb 15.3 H 12.9 (11.8-15.2) gm/dl Hct 44.6 38.8 (35.5-45.6) % Plt Count 273 234 (140-440) K/mm3 Lymph # Medicaid Eligibility Specialist 1.9 [place] # 0.8 (0.0-0.8) K/mm3 Eos # 0.0 (0.0-0.4) K/mm3 Baso # 0.1 (0.0-0.1) K/mm3 Comprehensive Metabolic Panel 03/28/17 03/29/17 Range/Units 16:47 03:36 Sodium 140 137 (137-145) mmol/L Potassium 3.4 L 3.7 (3.6-5.0) mmol/L Chloride 98.3 99.5 (98-107) mmol/L Carbon Dioxide 24 20 L (22-30) mmol/L BUN 17 14 (9-20) mg/dL Creatinine 1.1 0.8 (0.8-1.5) mg/dL Glucose 119 H 111 H (75-100) mg/dL Calcium 9.5 8.3 L (8.4-10.2) mg/dL
--- NOTE | 2017-03-29 15:31 | Progress Note ---
Assessment and Plan /Acute anterior wall STEMI (ST elevation myocardial infarction) s/p PCI of mid LAD with BM stent, cont antiplatelet therpay, statin, plavix, BB /HLD (hyperlipidemia) Lipid panel, statin therapy, low cholesterol diet. /Hypertensive urgency Monitor bp q shift, IV hydralazine prn, continue medical management. placed on nitroghycerin drip, stopped today /DVT prophylaxis lovenox Brief History: 51y M with history of hypertension, presented with chest pain. ECG consistent with acute anterior wall STEMI. Emergency cardiac cath :100% mid LAD occlusion. Successful primary PCI by cardiology, with excellent result, HEBER 3 flow restored, 3.0mm BM stent. Admitted to ICU for further management Radiological test: CXR - no gross finding Physical exam: General appearance: Present: severe distress - EENT Eyes: Present: PERRL ENT: hearing intact, clear oral mucosa - Neck Neck: Present: supple, normal ROM - Respiratory Respiratory effort: normal Respiratory: bilateral: diminished - Cardiovascular Heart Sounds: Present: S1 & S2. Absent: rub, click - Extremities Extremities: pulses symmetrical, No edema Peripheral Pulses: within normal limits - Abdominal General gastrointestinal: Present: soft, non-tender, non-distended, normal bowel sounds Male genitourinary: Present: normal - Integumentary Integumentary: Present: clear, warm, dry, pale - Musculoskeletal Musculoskeletal: generalized weakness - Psychiatric Psychiatric: appropriate mood/affect, intact judgment & insight, agitated - Neurologic Neurologic: CNII-XII intact, moves all extremities Subjective Date of service: 03/29/17 Interval history: pt seen and examined denies chest pain plan to transfer out of icu today Objective - Constitutional Vitals: Vital Signs - 12hr 03/29/17 03/29/17 03/29/17 03:40 03:46 03:50 Temperature 98.4 F Pulse Rate 72 71 Respiratory 21 19 Rate Respiratory Rate [chest] Blood Pressure 115/82 115/82 O2 Sat by Pulse 100 100 Oximetry 03/29/17 03/29/17 03/29/17 04:00 04:10 04:20 Temperature Pulse Rate 70 67 67 Respiratory 18 17 17 Rate Respiratory Rate [chest] Blood Pressure 121/87 121/87 121/87 O2 Sat by Pulse 98 100 99 Oximetry 03/29/17 03/29/17 03/29/17 04:30 04:40 04:50 Temperature Pulse Rate 70 69 67 Respiratory 15 14 16 Rate Respiratory Rate [chest] Blood Pressure 111/78 111/78 111/78 O2 Sat by Pulse 97 98 99 Oximetry 03/29/17 03/29/17 03/29/17 05:00 05:10 05:20 Temperature Pulse Rate 68 65 70 Respiratory 16 18 21 Rate Respiratory Rate [chest] Blood Pressure 114/78 114/78 114/78 O2 Sat by Pulse 100 99 100 Oximetry 03/29/17 03/29/17 03/29/17 05:30 05:40 05:50 Temperature Pulse Rate 64 62 63 Respiratory 18 20 14 Rate Respiratory Rate [chest] Blood Pressure 135/97 135/97 135/97 O2 Sat by Pulse 99 99 99 Oximetry 03/29/17 03/29/17 03/29/17 06:00 06:10 06:20 Temperature Pulse Rate 64 62 67 Respiratory 21 15 17 Rate Respiratory Rate [chest] Blood Pressure 127/92 127/92 127/92 O2 Sat by Pulse 98 99 99 Oximetry 03/29/17 03/29/17 03/29/17 06:30 06:40 06:50 Temperature Pulse Rate 61 63 61 Respiratory 17 17 16 Rate Respiratory Rate [chest] Blood Pressure 133/97 133/97 133/97 O2 Sat by Pulse 99 99 99 Oximetry 03/29/17 03/29/17 03/29/17 07:00 07:10 07:20 Temperature Pulse Rate 63 63 63 Respiratory 20 20 19 Rate Respiratory Rate [chest] Blood Pressure 136/95 136/95 136/95 O2 Sat by Pulse 98 99 99 Oximetry 03/29/17 03/29/17 03/29/17 07:30 07:40 07:50 Temperature Pulse Rate 61 59 L 60 Respiratory 19 16 16 Rate Respiratory Rate [chest] Blood Pressure 139/99 139/99 139/99 O2 Sat by Pulse 98 99 99 Oximetry 03/29/17 03/29/17 03/29/17 08:00 08:10 08:19 Temperature 98.3 F Pulse Rate 57 L 58 L Respiratory 16 15 Rate Respiratory Rate [chest] Blood Pressure 142/98 142/98 O2 Sat by Pulse 100 100 100 Oximetry 03/29/17 03/29/17 03/29/17 08:20 08:30 08:40 Temperature Pulse Rate 60 67 62 Respiratory 15 12 17 Rate Respiratory Rate [chest] Blood Pressure 142/98 139/102 139/102 O2 Sat by Pulse 99 97 99 Oximetry 03/29/17 03/29/17 03/29/17 08:50 09:00 09:10 Temperature Pulse Rate 58 L 63 61 Respiratory 19 18 23 Rate Respiratory Rate [chest] Blood Pressure 139/102 147/99 147/99 O2 Sat by Pulse 100 99 100 Oximetry 03/29/17 03/29/17 03/29/17 09:20 09:30 09:40 Temperature Pulse Rate 56 L 58 L 63 Respiratory 21 18 19 Rate Respiratory Rate [chest] Blood Pressure 147/99 147/102 147/99 O2 Sat by Pulse 100 100 99 Oximetry 03/29/17 03/29/17 03/29/17 09:50 10:00 10:19 Temperature Pulse Rate 76 68 66 Respiratory 18 17 Rate Respiratory 14 Rate [chest] Blood Pressure 147/99 142/99 142/99 O2 Sat by Pulse 100 98 Oximetry 03/29/17 03/29/17 03/29/17 10:30 11:00 11:30 Temperature Pulse Rate 65 66 67 Respiratory 14 13 9 L Rate Respiratory Rate [chest] Blood Pressure 142/100 136/89 141/93 O2 Sat by Pulse 98 97 96 Oximetry 03/29/17 03/29/17 03/29/17 12:00 12:30 13:00 Temperature 97.9 F Pulse Rate 65 57 L 56 L Respiratory 20 18 14 Rate Respiratory Rate [chest] Blood Pressure 132/85 127/88 145/100 O2 Sat by Pulse 97 97 98 Oximetry 03/29/17 03/29/17 03/29/17 13:30 14:00 14:30 Temperature Pulse Rate 58 L 56 L 63 Respiratory 11 L 14 20 Rate Respiratory Rate [chest] Blood Pressure 126/100 130/92 114/88 O2 Sat by Pulse 96 93 99 Oximetry 03/29/17 15:00 Temperature Pulse Rate 61 Respiratory 19 Rate Respiratory Rate [chest] Blood Pressure 130/98 O2 Sat by Pulse 98 Oximetry - Labs CBC & Chem 7: 03/29/17 03:36 03/29/17 03:36 Labs: Abnormal lab results 03/28/17 03/28/17 03/28/17 Range/Units 16:47 16:47 16:47 WBC 12.0 H (4.5-11.0) K/mm3 RBC 5.28 H (3.65-5.03) M/mm3 Hgb 15.3 H (11.8-15.2) gm/dl Seg Neutrophils % (40.0-70.0) % Seg Neutrophils # (1.8-7.7) K/mm3 PT 11.8 L (12.2-14.9) Sec. INR 0.83 L (0.87-1.13) Activated Clotting Time (74-137) Potassium 3.4 L (3.6-5.0) mmol/L Carbon Dioxide (22-30) mmol/L Glucose 119 H (75-100) mg/dL Calcium (8.4-10.2) mg/dL Total Creatine Kinase 418 H (55-170) units/L CK-MB (CK-2) 6.3 H (0.0-4.0) ng/mL CK-MB (CK-2) Rel Index (0-4) Troponin T (0.00-0.029) ng/mL Triglycerides (2-149) mg/dL Cholesterol (50-199) mg/dL 03/28/17 03/28/17 03/28/17 Range/Units 16:47 20:23 21:14 WBC (4.5-11.0) K/mm3 RBC (3.65-5.03) M/mm3 Hgb (11.8-15.2) gm/dl Seg Neutrophils % (40.0-70.0) % Seg Neutrophils # (1.8-7.7) K/mm3 PT (12.2-14.9) Sec. INR (0.87-1.13) Activated Clotting Time 175 H (74-137) Potassium (3.6-5.0) mmol/L Carbon Dioxide (22-30) mmol/L Glucose (75-100) mg/dL Calcium (8.4-10.2) mg/dL Total Creatine Kinase 1958 H (55-170) units/L CK-MB (CK-2) 209.6 H (0.0-4.0) ng/mL CK-MB (CK-2) Rel Index 10.7 H (0-4) Troponin T 6.360 H* D (0.00-0.029) ng/mL Triglycerides 1193 H (2-149) mg/dL Cholesterol 354 H (50-199) mg/dL 03/28/17 03/28/17 03/29/17 Range/Units 22:25 22:39 03:36 WBC 13.6 H (4.5-11.0) K/mm3 RBC (3.65-5.03) M/mm3 Hgb (11.8-15.2) gm/dl Seg Neutrophils % 79.6 H (40.0-70.0) % Seg Neutrophils # 10.8 H (1.8-7.7) K/mm3 PT (12.2-14.9) Sec. INR (0.87-1.13) Activated Clotting Time 142 H (74-137) Potassium (3.6-5.0) mmol/L Carbon Dioxide (22-30) mmol/L Glucose (75-100) mg/dL Calcium (8.4-10.2) mg/dL Total Creatine Kinase 2469 H (55-170) units/L CK-MB (CK-2) 264.1 H (0.0-4.0) ng/mL CK-MB (CK-2) Rel Index 10.6 H (0-4) Troponin T 6.970 H* (0.00-0.029) ng/mL Triglycerides (2-149) mg/dL Cholesterol (50-199) mg/dL 03/29/17 Range/Units 03:36 WBC (4.5-11.0) K/mm3 RBC (3.65-5.03) M/mm3 Hgb (11.8-15.2) gm/dl Seg Neutrophils % (40.0-70.0) % Seg Neutrophils # (1.8-7.7) K/mm3 PT (12.2-14.9) Sec. INR (0.87-1.13) Activated Clotting Time (74-137) Potassium (3.6-5.0) mmol/L Carbon Dioxide 20 L (22-30) mmol/L Glucose 111 H (75-100) mg/dL Calcium 8.3 L (8.4-10.2) mg/dL Total Creatine Kinase 2468 H (55-170) units/L CK-MB (CK-2) 262.6 H (0.0-4.0) ng/mL CK-MB (CK-2) Rel Index 10.6 H (0-4) Troponin T 6.840 H* (0.00-0.029) ng/mL Triglycerides (2-149) mg/dL Cholesterol (50-199) mg/dL
[2017-03-30] MEDS: PLAVIX PO SCH (09:44)
[2017-03-30] MEDS: ECOTRIN PO SCH (09:44)
[2017-03-30] MEDS: LOPRESSOR PO SCH (09:44)
[2017-03-30] MEDS ORDERED: ZESTRIL PO SCH (10:00)
[2017-03-30] MEDS ORDERED: IMDUR PO SCH (10:00)
[2017-03-30 13:03] VITALS: BP 104/68
--- NOTE | 2017-03-30 13:49 | Discharge Summary ---
Providers - Providers Date of Admission: 03/28/17 17:17 Date of discharge: 03/30/17 Attending physician: GENE BHATTI 03/28/17 Consult to Cardiac Rehabilitation [CONS] Routine Reason For Exam: post pci 03/28/17 16:56 Consult to Physician [CONS] Urgent Consulting Provider: JONES MATOS Reason For Exam: anterseptal stemi Notified:: y 03/29/17 10:57 Consult to Physician [CONS] Routine Consulting Provider: FIDEL ESTRADA Reason For Exam: Critical Care Admission Place consult to:: Dr palm Notified:: yes Primary care physician: [employer] Hospitalization Condition: Stable Hospital course: This is a 51y/o Male with history of hypertension, presented with chest pain. In the ER ECG consistent with acute anterior wall STEMI. S/p Emergency cardiac cath showed 100% mid LAD occlusion. Successful primary PCI by cardiology, with excellent result, HEBER 3 flow restored, 3.0mm BM stent. He was Admitted to ICU for further management. Placed on NTG drip to control BP, which then weaned off. He was transferred out of the ICU to telemetry. 2d echo showed 40-45% EF. He was discharged home in stable condition. Discharge diagnosis and management: /Acute anterior wall STEMI (ST elevation myocardial infarction) s/p PCI of mid LAD with BM stent, cont antiplatelet therpay, statin, plavix, BB /Acute systolic CHF following HI - cont antiplatelet therpay, statin, plavix, BB - cardiology f/u outpt /HLD (hyperlipidemia) Lipid panel obtained, continue statin therapy, low cholesterol diet. /Hypertensive urgency Monitored bp q shift, placed on nitroghycerin drip, IV hydralazine prn, weaned off NTG drip, BP controlled with BB, ACEI and nitrite /DVT prophylaxis placed on lovenox Radiological test: CXR - no gross finding Physical exam: General appearance: Present: severe distress - EENT Eyes: Present: PERRL ENT: hearing intact, clear oral mucosa - Neck Neck: Present: supple, normal ROM - Respiratory Respiratory effort: normal Respiratory: bilateral: diminished - Cardiovascular Heart Sounds: Present: S1 & S2. Absent: rub, click - Extremities Extremities: pulses symmetrical, No edema Peripheral Pulses: within normal limits - Abdominal General gastrointestinal: Present: soft, non-tender, non-distended, normal bowel sounds Male genitourinary: Present: normal - Integumentary Integumentary: Present: clear, warm, dry, pale - Musculoskeletal Musculoskeletal: generalized weakness - Psychiatric Psychiatric: appropriate mood/affect, intact judgment & insight, agitated - Neurologic Neurologic: CNII-XII intact, moves all extremities Disposition: DC-01 TO HOME OR SELFCARE Time spent for discharge: 32 minutes Core Measure Documentation - Palliative Care Palliative Care/ Comfort Measures: Not Applicable - Core Measures Any of the following diagnoses?: acute HI - Acute HI Discharge Requirements Aspirin at discharge: Yes TAYLOR/ARB for LVSD if EF <40%: Not Applicable Beta vidal at discharge: Yes Statin for LDL = or >100 mg/dl on DC: Yes Exam - Constitutional Vitals: Temp Pulse Resp BP Pulse Ox 98.3 F 88 18 104/68 97 03/30/17 13:02 03/30/17 13:02 03/30/17 06:28 03/30/17 13:02 03/30/17 12:08 Plan Activity: advance as tolerated Weight Bearing Status: Weight Bear as Tolerated Diet: low fat, low salt Follow up with: PRIMARY CARE, [Primary Care Provider] - 7 Days Prescriptions: AtorvaSTATin [Lipitor] 40 mg PO QHS #30 tablet Aspirin EC [Aspirin Enteric Coated TAB] 81 mg PO QDAY #30 tablet Clopidogrel [Plavix] 75 mg PO QDAY #30 tablet ISOSORBIDE MONOnitrate [Imdur ER] 30 mg PO QDAY #30 tablet Lisinopril [Zestril TAB] 40 mg PO QDAY #30 tablet Metoprolol [Lopressor TAB] 50 mg PO BID #60 tablet
--- NOTE | 2017-03-30 13:53 | Progress Note ---
Assessment and Plan Acute anterior wall STEMI. s/p PCI of mid LAD with BM stent. Echocardiogram shows a left ventricular ejection fraction 40-45%. Hypertension Recommendations: Continue medical therapy for coronary artery disease including plavix and aspirin. Stable, cardiac kohler, for discharge home today. Subjective Date of service: 03/30/17 Interval history: Patient denies chest pain. Objective Vital Signs Temp Pulse Pulse Resp BP BP Pulse Ox 03/30/17 13:02 98.3 F 88 104/68 03/30/17 12:08 56 L 97 03/30/17 09:45 69 143/95 03/30/17 09:44 69 143/95 03/30/17 08:27 68 143/95 97 03/30/17 08:01 99 03/30/17 06:28 98.6 F 69 18 112/71 03/30/17 05:13 112/71 03/29/17 23:07 129/97 03/29/17 22:55 52 L 03/29/17 21:28 129/97 03/29/17 21:16 129/97 03/29/17 20:38 98.1 F 16 146/81 03/29/17 20:20 59 L 15 129/97 96 03/29/17 20:10 61 18 129/97 96 03/29/17 20:07 100 03/29/17 20:00 98.1 F 64 52 L 18 129/97 98 03/29/17 19:50 66 16 141/76 97 03/29/17 19:40 72 15 141/76 98 03/29/17 19:32 67 22 141/76 96 03/29/17 19:30 60 17 141/76 97 03/29/17 19:25 60 03/29/17 19:00 67 13 141/76 96 03/29/17 18:30 71 21 141/76 97 03/29/17 18:00 66 24 141/76 98 03/29/17 17:30 64 23 141/76 98 03/29/17 17:00 67 18 141/76 98 03/29/17 16:30 59 L 19 141/76 96 03/29/17 16:00 98.6 F 66 15 141/76 96 03/29/17 15:30 60 20 114/88 98 03/29/17 15:00 61 19 130/98 98 03/29/17 14:30 63 20 114/88 99 03/29/17 14:00 56 L 14 130/92 93 - Physical Examination General: No Apparent Distress HEENT: Positive: PERRL Cardiac: Positive: Reg Rate and Rhythm Lungs: Positive: Decreased Breath Sounds Neuro: Positive: Grossly Intact Extremities: Absent: edema
== END 2017-03-30 15:35 | disposition home or self-care (01) | DRG 249 ==
LOC: CATH 16:45 → ED 16:45 → CC1 17:17 → 4A 03-29 19:20
PROVIDERS: ADMIT Internal Medicine; ATTEND Internal Medicine
PROC: 02703DZ Dilation of Coronary Artery, One Artery with Intraluminal Device, Percutaneous Approach (ICD-10-PCS; principal; 2017-03-28)
PROC: 4A023N7 Measurement of Cardiac Sampling and Pressure, Left Heart, Percutaneous Approach (ICD-10-PCS; 2017-03-28)
PROC: B2111ZZ Fluoroscopy of Multiple Coronary Arteries using Low Osmolar Contrast (ICD-10-PCS; 2017-03-28)
PROC: 3E0234Z Introduction of Serum, Toxoid and Vaccine into Muscle, Percutaneous Approach (ICD-10-PCS; 2017-03-29)
DX: I21.09 ST elevation (STEMI) myocardial infarction involving other coronary artery of anterior wall (principal); I16.0 Hypertensive urgency; Z23 Encounter for immunization; I10 Essential (primary) hypertension; E78.5 Hyperlipidemia, unspecified; I25.10 Atherosclerotic heart disease of native coronary artery without angina pectoris
CPT/HCPCS: 36415; 71010; 80048; 80061; 82550; 82553; 84484; 85007; 85025; 85347; 85610; 85730; 86850; 86900; 86901; 90686; 90732; 92941; 93005; 93010; 93306; 93458; 94760; A9270-GY; C1725; C1769; C1876; C1887; C1894; J0171; J0360; J0461; J1644; J2250; J2270; J2405; J3010; J7030; Q9967